=== PATIENT | male | born 1990 | race Caucasian/White ===

== ENCOUNTER 2022-06-10 09:50 | Emergency (ER) | payer MEDICARE, OTHER ==
[2022-06-10] MEDS ORDERED: Ibuprofen 800 MG TAB ONE (11:30)
== END 2022-06-10 12:39 | disposition home or self-care (01) ==
LOC: ERS 09:50
DX: J02.9 Acute pharyngitis, unspecified (principal)
CPT/HCPCS: 87081; 87430; 99283